=== PATIENT | male | born 1995 | race Caucasian/White ===

== ENCOUNTER 2023-01-08 19:01 | Emergency (ER) | payer BC, SELFPAY ==
[2023-01-08 19:04] VITALS: BP 142/85; PULSE 83; RESP 18; TEMP 37; O2SAT 98; BMI 24.3
--- NOTE | 2023-01-08 19:13 | PC.NURSE ---
pt has red open sore to right side of foot towards base of pinky toe on the outside. Pt states thought it was a bug bite but unsure at this time. Pt wears boots he states daily for about 12-14 hours straight and they rub on feet and he sweats. Concenred as it is red and sore now. Pt concerned for infection.
--- NOTE | 2023-01-08 19:16 | XR_ITS ---
The [address] [address] Patient Name: ROSALINDA ALVARADO MRN: [id number] date: 1995 Sex: M Assigned Patient Location: ER Current Patient Location: ED.MAIN Accession/Order Number: [id number] Exam Date: 01/08/2023 19:27 Report Date: 01/08/2023 19:54 At the request of: JUAN M FLORENCE Procedure: XR toe RT min 2V EXAM: XR toe RT min 2V HISTORY: 5th digits skin sore COMPARISON: None. TECHNIQUE: 3 views FINDINGS: IMPRESSION: No visualized fracture, dislocation, subluxation or osseous lesion. Joint spaces are unremarkable. No radiodense foreign body. Electronically authenticated by: ROBIN MARY Date: 01/08/2023 19:54
--- NOTE | 2023-01-08 19:20 | ED.EXTPRO1 ---
Documented by User: MARJ Salvador 01/08/23 19:41 HPI - Extremity Problem General Chief complaint: Extremity Problem, Nontraumatic Stated complaint: SORE ON TOE Time Seen by Provider: 01/08/23 19:02 Source: patient Mode of arrival: walk-in Limitations: no limitations History of Present Illness HPI Narrative: 27-year-old male, reports last tetanus in 2019, presents to the Emergency Room with concerns of wound to his right toe.patient states he noticed a blister or callus on the side of his foot two weeks ago that he thought was a spider bite. After it opened. No active drainage, notes fleshy opening just to the lateral aspect of his little toe near the MTP joint. Patient denies any significant pain. Notes his foot is generally moist his sock with perspiration while he works wearing boots. He denies any known history of diabetes. Notes frequent calcis from his foot where with activity. Patient states he has been dealing with symptoms for two weeks, and his mother who is a nurse advised him to come and get checked out. Location: Reports right Related Data Previous Rx's Medication Instructions Recorded sulfamethoxazole 800 1 tab PO Q12H 10 days #20 tabs 01/08/23 mg-trimethoprim 160 mg tablet (Bactrim DS) Allergies Allergy/AdvReac Type Severity Reaction Status Date / Time clarithromycin [From Biaxin] Allergy Intermediate Verified 01/08/23 19:08 Review of Systems ROS Constitutional Denies: fever or chills Eyes Denies: change in vision Ears, nose, mouth, and throat Denies: throat pain or neck pain Cardiovascular Denies: chest pain or palpitations Respiratory Denies: shortness of breath or cough Gastrointestinal Denies: abdominal pain, nausea or vomiting Genitourinary Denies: painful urination Musculoskeletal Denies: back pain or neck pain Integumentary/Breast Reports: non-healing lesion (5th digit right lateral foot); Denies: rash, itching or redness Neurological Denies: headache or numbness in extremities Psychiatric Denies: anxiety Allergic/Immunologic Denies: hives Exam Narrative Exam Narrative: Nurses notes and vital signs reviewed and patient is not hypoxic. General: The patient appears well and in no apparent distress. Patient is resting comfortably on cart. Skin: Warm, dry, no pallor noted. 1 cm oval shaped full-thickness skin wound ( fleshy base) to the lateral aspect of the 5th digit near the MTP joint. No active drainage, surrounding tissue without streaking or active drainage, no bone visible. no odor. dried skin at margines concerning for ruptured blister or callus. No evidence of foreign body. Wound culture obtained. Painless passive range of motion of the 5th digit noted Head: Normocephalic, atraumatic Neck: Supple, trachea mid-line, no tenderness, no lymphadenopathy Eye: Pupils are equal, round and reactive to light, EOMI Ears, Nose, Mouth, and Throat: external exam unremarkable Cardiovascular: Regular Rate and Rhythm Respiratory: Patient is in no distress, no accessory muscle use, lungs are clear to auscultation, no wheezing, rales or rhonchi. Musculoskeletal: normal ROM, no tenderness, no swelling, nontender ulceration versus ruptured blister/callus to the right lateral to MTP joint. Patient has callus to the bowel movements feet, nontender. No pain to the ankle joint. Painless passive range of motion noted at the toes distally. Neurological: A&O x4 Psychiatric: Cooperative Constitutional Vital Signs, click to edit/add: Last Vital Signs Temp 98.6 F 01/08/23 19:04 Pulse 83 01/08/23 19:04 Resp 18 01/08/23 19:04 BP 142/85 H 01/08/23 19:04 Pulse Ox 98 01/08/23 19:04 O2 Del Method Room Air 01/08/23 19:04 Course Vital Signs Vital signs: Vital Signs Temperature 98.6 F 01/08/23 19:04 Pulse Rate 83 01/08/23 19:04 Respiratory Rate 18 01/08/23 19:04 Blood Pressure 142/85 H 01/08/23 19:04 Pulse Oximetry 98 01/08/23 19:04 Oxygen Delivery Method Room Air 01/08/23 19:04 Temperature 98.6 F 01/08/23 19:04 Pulse Rate 83 01/08/23 19:04 Respiratory Rate 18 01/08/23 19:04 Blood Pressure 142/85 H 01/08/23 19:04 Pulse Oximetry 98 01/08/23 19:04 Oxygen Delivery Method Room Air 01/08/23 19:04 MDM - Extremity (Nontraumatic) MDM Narrative Medical decision making narrative: local skin breakdown at risk for infection 5th digit right foot and MTP joint. X-ray performed to rule out any obvious osteomyelitis by x-ray this patient has been dealing with symptoms for two weeks, we discussed wet-to-dry gauze dressing, oral antibiotics with food. He is given name for local podiatry for prompt follow-up. Given need for ongoing wound care management. Recommend offloading the foot for compression will be placed in a postop shoe. Neurovascular intact status post application with good alignment and bulky gauze dressing. Patient may use regular soap and water, but no submerging and no pools ponds or hot tubs pending evaluation with podiatry. Three view right 5th digit without evidence of fracture or gas, no bone breakdown. Radiologist interpretation pending The patient is to followup with Dr. [facility] in 1-2 days or to return to the emergency department should any of the signs or symptoms worsen or new symptoms develop. Patient had questions answered. The patient agrees with the following Diagnosis and Treatment plan and the patient will be discharged home. Discharge Plan Discharge Chief Complaint: Extremity Problem, Nontraumatic Clinical Impression: Foot ulcer, right Patient Disposition: Home, Self-Care Condition: Good Prescriptions / Home Meds: New sulfamethoxazole-trimethoprim [Bactrim DS] 800-160 mg tablet 1 tab PO Q12H 10 Days Qty: 20 0RF Instructions: Chronic Wounds (ED) Stand Alone Forms: Portal Instructions Referrals: Cameron Cheng MD [Primary Care Provider] - 1 week Jorge Sheppard DPM [Physician] - As soon as possible Discharge Date/Time: 01/08/23 20:10 Documented by User: Chelsea Aragon MD 01/08/23 21:29 HPI - Extremity Problem General Chief complaint: Extremity Problem, Nontraumatic Stated complaint: SORE ON TOE Time Seen by Provider: 01/08/23 19:02 Related Data Previous Rx's Medication Instructions Recorded sulfamethoxazole 800 1 tab PO Q12H 10 days #20 tabs 01/08/23 mg-trimethoprim 160 mg tablet (Bactrim DS) Allergies Allergy/AdvReac Type Severity Reaction Status Date / Time clarithromycin [From Biaxin] Allergy Intermediate Verified 01/08/23 19:08 Exam Constitutional Vital Signs, click to edit/add: Last Vital Signs Temp 98.6 F 01/08/23 19:04 Pulse 83 01/08/23 19:04 Resp 18 01/08/23 19:04 BP 142/85 H 01/08/23 19:04 Pulse Ox 98 01/08/23 19:04 O2 Del Method Room Air 01/08/23 19:04 Course Vital Signs Vital signs: Vital Signs Temperature 98.6 F 01/08/23 19:04 Pulse Rate 83 01/08/23 19:04 Respiratory Rate 18 01/08/23 19:04 Blood Pressure 142/85 H 01/08/23 19:04 Pulse Oximetry 98 01/08/23 19:04 Oxygen Delivery Method Room Air 01/08/23 19:04 Temperature 98.6 F 01/08/23 19:04 Pulse Rate 83 01/08/23 19:04 Respiratory Rate 18 01/08/23 19:04 Blood Pressure 142/85 H 01/08/23 19:04 Pulse Oximetry 98 01/08/23 19:04 Oxygen Delivery Method Room Air 01/08/23 19:04 MDM - Extremity (Nontraumatic) MDM Narrative Medical decision making narrative: local skin breakdown at risk for infection 5th digit right foot and MTP joint. X-ray performed to rule out any obvious osteomyelitis by x-ray this patient has been dealing with symptoms for two weeks, we discussed wet-to-dry gauze dressing, oral antibiotics with food. He is given name for local podiatry for prompt follow-up. Given need for ongoing wound care management. Recommend offloading the foot for compression will be placed in a postop shoe. Neurovascular intact status post application with good alignment and bulky gauze dressing. Patient may use regular soap and water, but no submerging and no pools ponds or hot tubs pending evaluation with podiatry. Three view right 5th digit without evidence of fracture or gas, no bone breakdown. Radiologist interpretation pending The patient is to followup with Dr. Justin baez in 1-2 days or to return to the emergency department should any of the signs or symptoms worsen or new symptoms develop. Patient had questions answered. The patient agrees with the following Diagnosis and Treatment plan and the patient will be discharged home. Attending physician attestation I have reviewed the mid-level documentation, agree with the documentation, medical decision making and treatment plan as outlined by the mid-level provider. Discharge Plan Discharge Chief Complaint: Extremity Problem, Nontraumatic Clinical Impression: Foot ulcer, right Patient Disposition: Home, Self-Care Condition: Good Prescriptions / Home Meds: New sulfamethoxazole-trimethoprim [Bactrim DS] 800-160 mg tablet 1 tab PO Q12H 10 Days Qty: 20 0RF Instructions: Chronic Wounds (ED) Stand Alone Forms: Portal Instructions Referrals: Cameron Cheng MD [Primary Care Provider] - 1 week Jorge Sheppard DPM [Physician] - As soon as possible Discharge Date/Time: 01/08/23 20:10
[2023-01-08] MEDS: SULFAMETHOXAZOLE/TRIMETHOPRIM 800-160 MG TABLET 1 TAB PO (20:27)
[2023-01-08] MEDS: BACITRACIN 0.9 GM PACKET 1 PACKET TOPICAL (20:28)
--- NOTE | 2023-01-08 20:33 | PC.NURSE ---
Bacitracin was charted as a transdermal patch because there was not an option to not chart it that way, even though the order was for topical bacitracin. The bacitracin was actually applied to the wound on the lateral right foot
== END 2023-01-08 20:10 | disposition home or self-care (01) ==
PROVIDERS: Emergency Provider Emergency Medicine; PCP Internal Medicine
DX: L97.519 Non-pressure chronic ulcer of other part of right foot with unspecified severity (principal)
CPT/HCPCS: 73660; 87070; 87150; 87186; 99284